=== PATIENT | female | born 1995 | race Caucasian/White ===

== ENCOUNTER 2017-12-06 07:31 | Emergency (ER) | payer OTHER ==
[~2017-12-06] VITALS: Ht 154.9 cm; Wt 50.0 kg
[~2017-12-06 07:31] MED LIST: Z.0.BCPILL PO; ZOFR4TAB3 SL
[2017-12-06 07:33] VITALS: BP 107/62; PULSE 82; RESP 16; TEMP 98; O2SAT 100
[2017-12-06] MEDS ORDERED: DIAZ10 PO (07:45)
[2017-12-06] MEDS ORDERED: MIRTA15 PO (07:45)
[2017-12-06 07:56] LABS: BILIRUBIN, URINE NEG (NEG); BLOOD, URINE NEG (NEG); GLUCOSE,URINE NEG (NEG); KETONE, URINE NEG (NEG); NITRITE,URINE NEG (NEG); PH, URINE 6.5 (5.0-8.5); URINE COLOR YELLOW (YELLW/STRAW); URINE LEUKOCYTE ESTERASE SMALL (NEG)
[2017-12-06 08:04] LABS: RBC, URINE 0-3 /hpf (0-3); SQUAMOUS EPITHELIAL CELL URINE 0-5 /hpf (0-5); WBC, URINE 15-19 /hpf (0-5); WHITE BLOOD CELL CLUMPS FEW
--- NOTE | 2017-12-06 08:09 | PD ---
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 Her fianc recently has developed a clear discharge from his penis and she is concerned that she might have chlamydia. She has never been . She does not use control. She does not have fever or chills. There are no associated symptoms. She has been no vomiting PFSH Past Medical History Diminished Hearing: No Tetanus Vaccination: Unknown ?: Not LMP: 11/18/17 : 0 Social History Alcohol Use: No Tobacco Use: No (QUIT 2012) Substance Use: No Allergies-Medications (Allergen,Severity, Reaction): Coded Allergies: No Known Allergies (Verified Allergy, Unknown, 12/06/17) Reported Meds & Prescriptions Reported Meds & Active Scripts Active Reported Valium (Diazepam) 10 Mg Tab 10 Mg PO HS PRN Mirtazapine 15 Mg Tab 15 Mg PO HS Review of Systems Except as stated in HPI: all other systems reviewed are Neg General / Constitutional: No: Fever, Chills Eyes: No: Diploplia, Blurred Vision Cardiovascular: No: Chest Pain or Discomfort, Palpitations Gastrointestinal: No: Vomiting, Diarrhea Genitourinary: No: Urgency, Frequency, Discharge Neurologic: No: Weakness Physical Exam Narrative GENERAL: Well-developed female SKIN: Focused skin assessment warm/dry. HEAD: Atraumatic. Normocephalic. EYES: Pupils equal and round. No scleral icterus. No injection or drainage. ENT: No nasal bleeding or discharge. Mucous membranes pink and moist. NECK: Trachea midline. No JVD. GASTROINTESTINAL: Abdomen soft, non-tender, nondistended. Hepatic and splenic margins not palpable. Pelvic: There is slight discharge. There is no pain with movement of the cervix. There are no adnexal masses MUSCULOSKELETAL: No obvious deformities. No clubbing. No cyanosis. No edema. NEUROLOGICAL: Awake and alert. No obvious cranial nerve deficits. Motor grossly within normal limits. Normal speech. PSYCHIATRIC: Appropriate mood and affect; insight and judgment normal. Data Data Last Documented VS Vital Signs Date Time Temp Pulse Resp B/P (MAP) Pulse Ox O2 Delivery O2 Flow Rate FiO2 12/06/17 07:33 98.0 82 16 107/62 (77) 100 Orders Orders Urinalysis - C+S If Indicated (12/06/17 07:34) Ed Urine Pregnancytest Poc (12/06/17 07:34) Urine Culture (12/06/17 07:40) Ceftriaxone Inj (Rocephin Inj) (12/06/17 09:00) Lidocaine 1% Inj (50 Ml) (Xylocaine 1% I (12/06/17 09:00) Gc And Chlamydia Pcr (12/06/17 08:07) Lidocaine Pf 1% Inj (Xylocaine-Mpf 1% In (12/06/17 08:22) Labs Laboratory Tests Test 12/06/17 07:40 12/06/17 08:35 Urine Collection Type CLEAN CATCH Urine Color YELLOW Urine Turbidity CLEAR Urine pH 6.5 Urine Specific [place] LESS/EQUAL 1.005 Urine Protein NEG mg/dL Urine Glucose (UA) NEG mg/dL Urine Ketones NEG mg/dL Urine Occult Blood NEG Urine Nitrite NEG Urine Bilirubin NEG Urine Urobilinogen 0.2 MG/DL Urine Leukocyte Esterase SMALL Urine RBC 0-3 /hpf Urine WBC 15-19 /hpf Urine WBC Clumps FEW Urine Squamous Epithelial Cells 0-5 /hpf Microscopic Urinalysis Comment CULTURE INDICATED Urine Collection Time 07:40 MDM Medical Decision Making Medical Screen Exam Complete: Yes Emergency Medical Condition: Yes Medical Record Reviewed: Yes Differential Diagnosis Differential is Chlamydia exposure Narrative Course Culture has been obtained. The patient will be treated with Rocephin and doxycycline Diagnosis Primary Impression: Exposure to chlamydia Scripts Doxycycline Hyclate (Doxycycline Hyclate) 100 Mg Cap 100 MG PO BID for Infection for 7 Days, #14 CAP 0 Refills Prov: Brandon Blas MD 12/06/17 Disposition: 01 DISCHARGE HOME Condition: Stable Brandon Blas MD Dec 06, 2017 08:09
[2017-12-06] MEDS ORDERED: LIDOCAINE HCL 1% PF 30 ML VIAL ONE (08:22)
[2017-12-06] MEDS ORDERED: DOXY100C PO (08:48)
[2017-12-06] MEDS ORDERED: LIDOCAINE HCL 1% 50 ML VIAL XX ONE (09:00)
[2017-12-06] MEDS ORDERED: cefTRIAXone 250 MG VIAL IM ONE (09:00)
[2017-12-06] MEDS ORDERED: ERYTOIN10 EACH EYE (09:00)
== END 2017-12-06 09:04 | disposition home or self-care (01) ==
LOC: PHED 07:31
DX: Z20.2 Contact with and (suspected) exposure to infections with a predominantly sexual mode of transmission (principal); Z87.891 Personal history of nicotine dependence
CPT/HCPCS: 81001; 84703; 87086; 87491; 87591; 96372; 99283; J0696

== ENCOUNTER 2018-02-02 16:09 | Emergency (ER) | payer OTHER ==
[~2018-02-02] VITALS: Ht 154.9 cm; Wt 46.5 kg
[~2018-02-02 16:09] MED LIST changes: +DIAZ10 PO; +DOXY100C PO; +ERYTOIN10 EACH EYE; +MIRTA15 PO; -Z.0.BCPILL PO; -ZOFR4TAB3 SL
[2018-02-02 16:16] VITALS: BP 119/64; PULSE 107; RESP 16; TEMP 98.5; O2SAT 95
--- NOTE | 2018-02-02 16:58 | PD ---
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 This patient complains of vaginal discharge. She described as white and frothy. She is not having pelvic pain. She does not think she is . No bleeding. Symptom severity is mild to moderate. Duration 2 days. No alleviating factors. No exacerbating factors. PFSH Past Medical History Diminished Hearing: No Immunizations Current: Yes ?: Not LMP: 01/19/18 : 0 Social History Alcohol Use: Yes (~1 x weekly) Tobacco Use: No (QUIT 2012) Substance Use: No Allergies-Medications (Allergen,Severity, Reaction): Coded Allergies: No Known Allergies (Verified Allergy, Unknown, 02/02/18) Reported Meds & Prescriptions Reported Meds & Active Scripts Active No Active Prescriptions or Reported Medications Review of Systems General / Constitutional: No: Fever Eyes: No: Visual changes HENT: No: Headaches Cardiovascular: No: Chest Pain or Discomfort Respiratory: No: Shortness of Breath Gastrointestinal: No: Abdominal Pain Genitourinary: Positive: Discharge, No: Dysuria Musculoskeletal: No: Pain Skin: No Rash Neurologic: No: Weakness Psychiatric: No: Depression Endocrine: No: Polydipsia Hematologic/Lymphatic: No: Easy Bruising Physical Exam Narrative GASTROINTESTINAL: Abdomen soft, non-tender, nondistended. Positive bowel sounds. No hepato-splenomegaly, or palpable masses. No guarding. SKIN: Focused skin assessment reveals no rash or ulcers. Skin is warm and dry. Palpation shows no induration or nodules. Pelvic: Speculum exam was done. No cervical motion tenderness. No blood. There is a whitish discharge. Sample was obtained for wet prep. No adnexal tenderness or mass. GC and chlamydia obtained Data Data Last Documented VS Vital Signs Date Time Temp Pulse Resp B/P (MAP) Pulse Ox O2 Delivery O2 Flow Rate FiO2 02/02/18 16:16 98.5 107 16 119/64 (82) 95 Orders Orders Ed Urine Pregnancytest Poc (02/02/18 16:21) Gc And Chlamydia Pcr (02/02/18 16:38) Wet Prep Profile (02/02/18 16:47) Labs Laboratory Tests Test 02/02/18 16:40 Clue Cells (Wet Prep) NONE SEEN Vaginal Trichomonas (Wet Prep) NONE SEEN Vaginal Yeast (Wet Prep) NONE SEEN MDM Medical Decision Making Medical Screen Exam Complete: Yes Emergency Medical Condition: Yes Medical Record Reviewed: Yes Differential Diagnosis Vaginitis, cervicitis, PID Narrative Course I have reviewed the patient's electronic medical record. Patient was seen here in November 2017 for STD exposure Urine is negative GC and Chlamydia sent Wet prep is negative I do not see anything that needs urgent treatment. 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
== END 2018-02-02 17:48 | disposition home or self-care (01) ==
LOC: PHED 16:09
DX: N89.8 Other specified noninflammatory disorders of vagina (principal); Z87.891 Personal history of nicotine dependence
CPT/HCPCS: 84703; 87210; 87491; 87591; 99283